=== PATIENT | male | born 1940 | race Caucasian/White ===

== ENCOUNTER 2018-01-10 19:16 | Inpatient (IN) | payer MEDICARE ==
[~2018-01-10] VITALS: Ht 177.8 cm; Wt 75.0 kg
[2018-01-10 19:28] VITALS: BP 167/77; PULSE 90; RESP 18; TEMP 98.1; O2SAT 87
[2018-01-10 19:34] VITALS: BP 167/77; PULSE 89; RESP 18; O2SAT 100
[2018-01-10] MEDS ORDERED: DILTIAZEM INJ 125 MG in SODIUM CHLORIDE 0.9% INJ 100 ML IV PRN (19:45)
[2018-01-10] MEDS ORDERED: SODIUM CHLORIDE 0.9% FLUSH 10 ML FLUSH IVF PRN (19:45)
[2018-01-10] MEDS ORDERED: DILTIAZEM HCL 25 MG/5 ML VIAL IV PUSH ONE (19:45)
[2018-01-10 19:46] VITALS: O2SAT 99
--- NOTE | 2018-01-10 19:50 | PD ---
HPI Chief Complaint: Dizziness Time Seen by Provider: 19:38 Travel History International Travel<30 days: No Contact w/Intl Traveler<30days: No Traveled to known affect area: No History of Present Illness HPI The patient 77 years old and arrives with dizziness and lightheadedness. The symptoms started today. He has had no similar symptoms ever before. He reports a history of vertigo months ago however denies any change in his baseline health status lately. He has no chest pain or shortness of breath. Dizziness comes and goes lasting a few minutes at a time. No loss of consciousness. PFSH Past Medical History Cardiovascular Problems: Yes (HTN) Social History Tobacco Use: No Allergies-Medications (Allergen,Severity, Reaction): Coded Allergies: No Known Allergies (Unverified , 01/10/18) Review of Systems Except as stated in HPI: all other systems reviewed are Neg General / Constitutional: No: Fever Physical Exam Narrative GENERAL: 77-year-old male pleasant well-nourished well-developed Vital Signs Date Time Temp Pulse Resp B/P (MAP) Pulse Ox O2 Delivery O2 Flow Rate FiO2 01/10/18 19:34 85 18 98 Nasal Cannula 2.00 01/10/18 19:28 98.1 90 18 167/77 (107) 87 SKIN: Warm and dry. HEAD: Atraumatic. Normocephalic. EYES: Pupils equal and round. No scleral icterus. No injection or drainage. ENT: No nasal bleeding or discharge. Mucous membranes pink and moist. NECK: Trachea midline. No JVD. CARDIOVASCULAR: Irregular heart rate. Rhythm occasionally jumps to 170. In between runs of tachycardia the heart rate remains at 80s. RESPIRATORY: No accessory muscle use. Clear to auscultation. Breath sounds equal bilaterally. GASTROINTESTINAL: Abdomen soft, non-tender, nondistended. Hepatic and splenic margins not palpable. MUSCULOSKELETAL: Extremities without clubbing, cyanosis, or edema. No obvious deformities. NEUROLOGICAL: Awake and alert. No obvious cranial nerve deficits. Motor grossly within normal limits. Five out of 5 muscle strength in the arms and legs. Normal speech. PSYCHIATRIC: Appropriate mood and affect; insight and judgment normal. Data Data Last Documented VS Vital Signs Date Time Temp Pulse Resp B/P (MAP) Pulse Ox O2 Delivery O2 Flow Rate FiO2 01/10/18 20:52 70 18 135/79 (97) 100 01/10/18 19:46 Nasal Cannula 2.00 01/10/18 19:28 98.1 Orders Orders Electrocardiogram (01/10/18 19:38) Basic Metabolic Panel (Bmp) (01/10/18 19:38) Ckmb (Isoenzyme) Profile (01/10/18 19:38) Complete Blood Count With Diff (01/10/18 19:38) Magnesium (Mg) (01/10/18 19:38) Prothrombin Time / Inr (Pt) (01/10/18 19:38) Act Partial Throm Time (Ptt) (01/10/18 19:38) Troponin I (01/10/18 19:38) Chest, Single Ap (01/10/18 19:38) Ecg Monitoring (01/10/18:38) Iv Access Insert/Monitor (01/10/18 19:38) Oximetry (01/10/18 19:38) Oxygen Administration (01/10/18:38) Sodium Chloride 0.9% Flush (Ns Flush) (01/10/18 19:45) Diltiazem Inj (Cardizem Inj) (01/10/18 19:45) Diltiazem Inj (Cardizem Inj) (01/10/18 19:45) Diltiazem Inj (Cardizem Inj) (01/10/18 20:00) Potassium Chloride (Kcl) (01/10/18 21:00) Admit Order (Ed Use Only) (01/10/18 ) Property Disposal Officer / Telemetry LAILA.Q8H (01/10/18 21:58) Vital Signs (Adult) Q4H (01/10/18 21:58) Diet Heart Healthy (01/11/18 Breakfast) Activity Bed Rest (01/10/18 21:58) Labs Laboratory Tests Test 01/10/18 19:50 White Blood Count 6.3 TH/MM3 Red Blood Count 4.64 MIL/MM3 Hemoglobin 14.2 GM/DL Hematocrit 40.2 % Mean Corpuscular Volume 86.5 FL Mean Corpuscular Hemoglobin 30.5 PG Mean Corpuscular Hemoglobin Concent 35.3 % Red Cell Distribution Width 13.4 % Platelet Count 180 TH/MM3 Mean Platelet Volume 7.8 FL Neutrophils (%) (Auto) 68.1 % Lymphocytes (%) (Auto) 21.6 % Monocytes (%) (Auto) 8.4 % Eosinophils (%) (Auto) 1.2 % Basophils (%) (Auto) 0.7 % Neutrophils # (Auto) 4.3 TH/MM3 Lymphocytes # (Auto) 1.4 TH/MM3 Monocytes # (Auto) 0.5 TH/MM3 Eosinophils # (Auto) 0.1 TH/MM3 Basophils # (Auto) 0.0 TH/MM3 CBC Comment DIFF FINAL Differential Comment Prothrombin Time 10.6 SEC Prothromb Time International Ratio 1.0 RATIO Activated Partial Thromboplast Time 24.0 SEC Blood Urea Nitrogen 14 MG/DL Creatinine 1.05 MG/DL Random Glucose 122 MG/DL Calcium Level 9.4 MG/DL Magnesium Level 2.2 MG/DL Sodium Level 139 MEQ/L Potassium Level 3.2 MEQ/L Chloride Level 104 MEQ/L Carbon Dioxide Level 25.3 MEQ/L Anion Gap 10 MEQ/L Estimat Glomerular Filtration Rate 68 ML/MIN Total Creatine Kinase 77 U/L Troponin I LESS THAN 0.02 NG/ML MDM Medical Decision Making Medical Screen Exam Complete: Yes Emergency Medical Condition: Yes Medical Record Reviewed: Yes Differential Diagnosis NSTEMI, unstable angina, coronary vasospasm, PE, PTX, aortic dissection, pericarditis, myocarditis, endocarditis, PNA, esophageal disease, aneurysm, musculoskeletal etiologies, anxiety, cocaine/sympathomimetic abuse Narrative Course CBC & BMP Diagram 01/10/18 19:50 Calcium Level 9.4, Magnesium Level 2.2 Troponins less than 0.02 2 EKGs were performed, the second was obtained about 2 minutes after the first The first reveals a sinus rhythm with a rate of 95 normal axis intervals The second EKG reveals ventricular rate of 172 and his atrial fibrillation Last Impressions Chest X-Ray 01/10/181937 Signed Impressions: Service Date/Time: December 19:45 - CONCLUSION: No acute cardiopulmonary disease demonstrated. Grover Isabel MD The patient received diltiazem twice. The patient was then placed on a diltiazem drip. Patient will be admitted for A. fib with RVR with dizziness secondary to hypoperfusion. D/w Dr Camargo for [facility] Critical Care Narrative Aggregate critical care time was 35 minutes. Time to perform other separately billable procedures was not included in the critical care time. My time did not include minutes spent treating any other patients simultaneously or on activities that did not directly contribute to the patient's treatment. The services I provided to this patient were to treat and/or prevent clinically significant deterioration that could result in: Cardiopulmonary arrest, hemorrhagic shock I provided critical care services requiring my management, as noted below: Chart data review, documentation time, medication orders and management, vital sign assessments/reviewing monitor data, ordering and reviewing lab tests, ordering and interpreting/reviewing x-rays and diagnostic studies, care of the patient and discussion of the patient with the admitting physicians. Diagnosis Primary Impression: Atrial fibrillation with RVR Additional Impressions: Hypokalemia Dizziness Admitting Information Admitting Physician Requests: Norman Adams MD Jan 10, 2018 19:50
--- NOTE | 2018-01-10 19:59 | RADRPT ---
EXAM DATE/TIME: 01/10/2018 19:45 [place] COMPARISON: No previous studies available for comparison. INDICATIONS : Short of breath MEDICAL HISTORY : None. SURGICAL HISTORY : None. ENCOUNTER: Initial ACUITY: 1 day PAIN SCORE: 0/10 LOCATION: chest FINDINGS: A single view of the chest demonstrates the lungs to be symmetrically aerated without evidence of mas s, infiltrate or effusion. The cardiomediastinal contours are unremarkable. Osseous structures are intact. CONCLUSION: No acute cardiopulmonary disease demonstrated. Grover Isabel MD on January 10, 2018 at 19:56 Board Certified Radiologist. This report was verified electronically.
[2018-01-10] MEDS ORDERED: DILTIAZEM HCL 50 MG/10 ML VIAL IV PUSH ONE (20:00)
[2018-01-10 20:11] LABS: AUTOMATED NEUTROPHIL # 4.3 TH/MM3 (1.8-7.7); BASOPHIL % 0.7 % (0.0-2.0); EOSINOPHIL # 0.1 TH/MM3 (0-0.4); EOSINOPHIL % 1.2 % (0.0-4.0); HEMATOCRIT 40.2 % (39.0-51.0); HEMOGLOBIN 14.2 GM/DL (13.0-17.0); LYMPH % 21.6 % (9.0-44.0); LYMPHOCYTE # 1.4 TH/MM3 (1.0-4.8); MEAN CELL VOLUME 86.5 FL (80.0-100.0); MEAN CORPUSCULAR HEMOGLOBIN 30.5 PG (27.0-34.0); MEAN CORPUSCULAR HGB CONC 35.3 % (32.0-36.0); MEAN PLATELET VOLUME 7.8 FL (7.0-11.0); MONO % 8.4 % (0.0-8.0); MONOCYTE # 0.5 TH/MM3 (0-0.9); NEUT % 68.1 % (16.0-70.0); PLATELET COUNT 180 TH/MM3 (150-450); RED BLOOD COUNT 4.64 MIL/MM3 (4.50-5.90); RED CELL DISTRIBUTION WIDTH 13.4 % (11.6-17.2); WHITE BLOOD COUNT 6.3 TH/MM3 (4.0-11.0)
[2018-01-10 20:13] LABS: PROTHROMBIN TIME - PATIENT 10.6 SEC (9.8-11.6)
[2018-01-10 20:33] LABS: BICARBONATE 25.3 MEQ/L (21.0-32.0); BLOOD UREA NITROGEN 14 MG/DL (7-18); CALCIUM 9.4 MG/DL (8.5-10.1); CHLORIDE 104 MEQ/L (98-107); CREATININE 1.05 MG/DL (0.60-1.30); GLOMERULAR FILTRATION RATE 68 ML/MIN (>89); GLUCOSE,RANDOM 122 MG/DL (74-106); MAGNESIUM 2.2 MG/DL (1.5-2.5); SODIUM (NA) 139 MEQ/L (136-145)
[2018-01-10 20:37] LABS: TROPONIN I LESS THAN 0.02 NG/ML (0.02-0.05)
[2018-01-10 20:52] VITALS: BP 135/79; PULSE 70; RESP 18; O2SAT 100
[2018-01-10] MEDS ORDERED: POTASSIUM CHLORIDE 20 MEQ CONTROLLED RELEASE TAB PO ONE (21:00)
[2018-01-10] MEDS ORDERED: ENOXAPARIN SODIUM 40 MG/0.4 ML SYRINGE SQ SCH (22:45)
[2018-01-10] MEDS ORDERED: SODIUM CHLORIDE 0.9% FLUSH 10 ML FLUSH IV FLUSH PRN (22:45)
[2018-01-10] MEDS ORDERED: ONDANSETRON HCL 4 MG/2 ML VIAL IVP PRN (22:45)
[2018-01-10] MEDS ORDERED: NALOXONE HCL 0.4 MG/ML AMP IV PUSH PRN (22:45)
[2018-01-11] VITALS (14 sets, daily range): BP systolic 125–163; BP diastolic 71–87; PULSE 32–68; RESP 13–18; TEMP 97.7–97.8; O2SAT 100
[2018-01-11] MEDS ORDERED: POTASSIUM CHLORIDE 20 MEQ CONTROLLED RELEASE TAB PO ONE (01:15)
--- NOTE | 2018-01-11 01:27 | HHI.HP ---
[facility] Unknown Admission Diagnosis AFib RVR; HypoK; Dizziness Diagnoses: Travel History International Travel<30 Days: No Contact w/Intl Traveler <30 Da: No Traveled to Known Affected Are: No History of Present Illness 77-year-old male with a past medical history significant for hypertension and an unspecified tachycardia presents to the emergency department for the evaluation of multiple "fainting spells." The patient reports that the first one occurred while he was walking down [address] and the second one occurred while he was driving. He states that he became lightheaded but denies loss of consciousness. The patient denies any chest pain or palpitations. He denies shortness of breath. No nausea/vomiting. No fever/chills. 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 He is an extremely poor historian and does not remember the medications that he takes. Patient denies any previous history of irregular heartbeat or atrial fibrillation. Review of Systems Except as stated in HPI: all other systems reviewed are Neg Past Family Social History Past Medical History History of tachycardia Hypertension Past Surgical History Right hip Hernia repair Reported Medications Patient does not know Allergies: Coded Allergies: No Known Allergies (Unverified , 01/10/18) Family History Negative for CAD/DM Social History Remote history of smoking. Occasional alcohol. Denies illicit drugs. Physical Exam Vital Signs Vital Signs Date Time Temp Pulse Resp B/P (MAP) Pulse Ox O2 Delivery O2 Flow Rate FiO2 01/10/18 20:52 70 18 135/79 (97) 100 01/10/18 20:25 74 137/84 01/10/18 19:46 98 Nasal Cannula 2.00 01/10/18 19:46 99 Nasal Cannula 2.00 01/10/18 19:34 85 18 98 Nasal Cannula 2.00 01/10/18 19:34 89 18 167/77 (107) 100 01/10/18 19:28 98.1 90 18 167/77 (107) 87 Physical Exam GENERAL: male lying in bed SKIN: No rashes, ecchymoses or lesions. Cool and dry. HEAD: Atraumatic. Normocephalic. No temporal or scalp tenderness. EYES: Pupils equal round and reactive. Extraocular motions intact. No scleral icterus. No injection or drainage. ENT: Nose without bleeding, purulent drainage or septal hematoma. Throat without erythema, tonsillar hypertrophy or exudate. Uvula midline. Airway patent. NECK: Trachea midline. No JVD or lymphadenopathy. Supple, nontender, no meningeal signs. CARDIOVASCULAR: Regular rate and rhythm without murmurs, gallops, or rubs. RESPIRATORY: Clear to auscultation. Breath sounds equal bilaterally. No wheezes , rales, or rhonchi. GASTROINTESTINAL: Abdomen soft, non-tender, nondistended. No hepato-splenomegaly , or palpable masses. No guarding. MUSCULOSKELETAL: Extremities without clubbing, cyanosis, or edema. No joint tenderness, effusion, or edema noted. No calf tenderness. NEUROLOGICAL: Awake and alert. Cranial nerves II through XII intact. Motor and sensory grossly within normal limits. Normal speech. Laboratory Laboratory Tests Test 01/10/18 19:50 White Blood Count 6.3 Red Blood Count 4.64 Hemoglobin 14.2 Hematocrit 40.2 Mean Corpuscular Volume 86.5 Mean Corpuscular Hemoglobin 30.5 Mean Corpuscular Hemoglobin Concent 35.3 Red Cell Distribution Width 13.4 Platelet Count 180 Mean Platelet Volume 7.8 Neutrophils (%) (Auto) 68.1 Lymphocytes (%) (Auto) 21.6 Monocytes (%) (Auto) 8.4 Eosinophils (%) (Auto) 1.2 Basophils (%) (Auto) 0.7 Neutrophils # (Auto) 4.3 Lymphocytes # (Auto) 1.4 Monocytes # (Auto) 0.5 Eosinophils # (Auto) 0.1 Basophils # (Auto) 0.0 CBC Comment DIFF FINAL Differential Comment Prothrombin Time 10.6 Prothromb Time International Ratio 1.0 Activated Partial Thromboplast Time 24.0 Blood Urea Nitrogen 14 Creatinine 1.05 Random Glucose 122 Calcium Level 9.4 Magnesium Level 2.2 Sodium Level 139 Potassium Level 3.2 Chloride Level 104 Carbon Dioxide Level 25.3 Anion Gap 10 Estimat Glomerular Filtration Rate 68 Total Creatine Kinase 77 Troponin I LESS THAN 0.02 Result Diagram: 01/10/18 1950 01/10/181949 Caprini VTE Risk Assessment Caprini VTE Risk Assessment: Mod/High Risk (score >= 2) Caprini Risk Assessment Model Point Value = 1 Point Value = 2 Point Value = 3 Point Value = 5 Age 41-60 Minor surgery BMI > 25 kg/m2 Swollen legs Varicose veins or History of unexplained or recurrent spontaneous Oral contraceptives or hormone replacement Sepsis (< 1 month) Serious lung disease, including pneumonia (< 1 month) Abnormal pulmonary function Acute myocardial infarction Congestive heart failure (< 1 month) History of inflammatory bowel disease Medical patient at bed rest Age 61-74 Arthroscopic surgery Major open surgery (> 45 min) Laparoscopic surgery (> 45 min) Malignancy Confined to bed (> 72 hours) Immobilizing plaster cast Central venous access Age >= 75 History of VTE Family history of VTE Factor V Leiden Prothrombin [id number] Lupus anticoagulant Anticardiolipin antibodies Elevated serum homocysteine Heparin-induced thrombocytopenia Other congenital or acquired thrombophilia Stroke (< 1 month) Elective arthroplasty Hip, pelvis, or leg fracture Acute spinal cord injury (< 1 month) Prophylaxis Regimen Total Risk Factor Score Risk Level Prophylaxis Regimen 0-1 Low Early ambulation 2 Moderate Order ONE of the following: *Sequential Compression Device (SCD) *Heparin 5000 units SQ BID 3-4 Higher Order ONE of the following medications: *Heparin 5000 units SQ TID *Enoxaparin/Lovenox 40 mg SQ daily (WT < 150 kg, CrCl > 30 mL/min) *Enoxaparin/Lovenox 30 mg SQ daily (WT < 150 kg, CrCl > 10-29 mL/min) *Enoxaparin/Lovenox 30 mg SQ BID (WT < 150 kg, CrCl > 30 mL/min) AND/OR *Sequential Compression Device (SCD) 5 or more Highest Order ONE of the following medications: *Heparin 5000 units SQ TID (Preferred with Epidurals) *Enoxaparin/Lovenox 40 mg SQ daily (WT < 150 kg, CrCl > 30 mL/min) *Enoxaparin/Lovenox 30 mg SQ daily (WT < 150 kg, CrCl > 10-29 mL/min) *Enoxaparin/Lovenox 30 mg SQ BID (WT < 150 kg, CrCl > 30 mL/min) AND *Sequential Compression Device (SCD) Assessment and Plan Assessment and Plan Assessment/plan: 1. Atrial fibrillation with rapid ventricular response Patient without history of A. fib, not on anticoagulation EKG significant for A. 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 he is on a medication that ends in -lol, can not remember the name 2. Hypokalemia Status post by mouth repletion Follow-up BMP in the a.m. 3. Hypertension Patient does not number his home medications Blood pressure currently controlled Monitor Patient will contact his who may know his home medication list FEN Heart healthy diet Electrolytes: As above [facility] Physician Certification 2 Midnight Certification Type: Admission for Inpatient Services Order for Inpatient Services The services are ordered in accordance with Medicare regulations or non- Medicare payer requirements, as applicable. In the case of services not specified as inpatient-only, they are appropriately provided as inpatient services in accordance with the 2-midnight benchmark. Estimated LOS (days): 2 2 days is the estimated time the patient will need to remain in the hospital, assuming treatment plan goals are met and no additional complications. Post-Hospital Plan: Not yet determined Emmy Camargo MD Jan 11, 2018 01:27
[2018-01-11 08:48] LABS: AUTOMATED NEUTROPHIL # 2.6 TH/MM3 (1.8-7.7); BASOPHIL % 0.7 % (0.0-2.0); EOSINOPHIL # 0.1 TH/MM3 (0-0.4); EOSINOPHIL % 1.7 % (0.0-4.0); HEMATOCRIT 39.1 % (39.0-51.0); HEMOGLOBIN 13.9 GM/DL (13.0-17.0); LYMPH % 28.5 % (9.0-44.0); LYMPHOCYTE # 1.3 TH/MM3 (1.0-4.8); MEAN CELL VOLUME 86.1 FL (80.0-100.0); MEAN CORPUSCULAR HEMOGLOBIN 30.6 PG (27.0-34.0); MEAN CORPUSCULAR HGB CONC 35.6 % (32.0-36.0); MONO % 11.1 % (0.0-8.0); MONOCYTE # 0.5 TH/MM3 (0-0.9); PLATELET COUNT 168 TH/MM3 (150-450); RED BLOOD COUNT 4.54 MIL/MM3 (4.50-5.90); RED CELL DISTRIBUTION WIDTH 13.5 % (11.6-17.2); WHITE BLOOD COUNT 4.4 TH/MM3 (4.0-11.0)
[2018-01-11] MEDS ORDERED: SODIUM CHLORIDE 0.9% FLUSH 10 ML FLUSH IV FLUSH SCH (09:00)
[2018-01-11 09:04] LABS: BICARBONATE 25.6 MEQ/L (21.0-32.0); CREATININE 0.82 MG/DL (0.60-1.30)
[2018-01-11] MEDS ORDERED: cloNIDine HCL 0.2 MG TAB PO PRN (10:00)
--- NOTE | 2018-01-11 10:09 | HHI.PR ---
Subjective Remarks This is a pleasant 77 y/o Male with Hypertension, Atrial Fibrillation who came to ER with Syncopal episodes, He states that he became lightheaded but denies loss of consciousness. The patient denies any chest pain or palpitations. He denies shortness of breath. No nausea/vomiting. No fever/chills. Patient denies any previous history of irregular heartbeat or atrial fibrillation. 01/11: Admitted today and awaiting for recruitment specialist consult, added laboratory. No nausea, vomit or diarrhea. Objective Vital Signs Date Time Temp Pulse Resp B/P (MAP) Pulse Ox O2 Delivery O2 Flow Rate FiO2 01/11/18 08:00 60 01/11/18 08:00 97.8 61 17 163/87 (112) 100 01/11/18 06:08 50 18 131/71 (91) 100 Room Air 01/11/18 04:34 48 137/78 01/11/18 04:28 60 146/78 (100) 01/11/18 02:02 48 18 136/77 (96) 100 01/11/18 01:47 50 139/82 (101) 01/11/18 01:34 52 134/75 (94) 01/11/18 01:17 52 137/73 (94) 01/11/18 01:02 52 136/74 (94) 01/11/18 00:47 52 143/81 (101) 01/11/18 00:17 54 145/76 (99) 01/11/18 00:02 64 160/84 (109) 01/11/18 00:00 58 143/68 01/10/18 20:52 70 18 135/79 (97) 100 01/10/18 20:25 74 137/84 01/10/18 19:46 98 Nasal Cannula 2.00 01/10/18 19:46 99 Nasal Cannula 2.00 01/10/18 19:34 85 18 98 Nasal Cannula 2.00 01/10/18 19:34 89 18 167/77 (107) 100 01/10/18 19:28 98.1 90 18 167/77 (107) 87 I/O 01/10/18 01/10/18 01/10/18 01/11/18 01/11/18 01/11/18 07:00 15:00 23:00 07:00 15:00 23:00 Output Total 250 ml Balance -250 ml Output Urine Total 250 ml Result Diagram: 01/11/18 0735 01/11/18 0755 Imaging Last Impressions Chest X-Ray 01/10/18 1938 Signed Impressions: Service Date/Time: December 19:45 - CONCLUSION: No acute cardiopulmonary disease demonstrated. Grover Isabel MD Procedures None Other Results Laboratory Tests Test 01/10/18 19:50 01/11/18 07:35 01/11/18 07:55 Prothrombin Time 10.6 SEC Prothromb Time International Ratio 1.0 RATIO Activated Partial Thromboplast Time 24.0 SEC Blood Urea Nitrogen 14 MG/DL 13 MG/DL Creatinine 1.05 MG/DL 0.82 MG/DL Random Glucose 122 MG/DL 89 MG/DL Calcium Level 9.4 MG/DL 9.0 MG/DL Magnesium Level 2.2 MG/DL Sodium Level 139 MEQ/L 142 MEQ/L Potassium Level 3.2 MEQ/L 3.5 MEQ/L Chloride Level 104 MEQ/L 108 MEQ/L Carbon Dioxide Level 25.3 MEQ/L 25.6 MEQ/L Total Creatine Kinase 77 U/L Troponin I LESS THAN 0.02 NG/ML White Blood Count 4.4 TH/MM3 Red Blood Count 4.54 MIL/MM3 Hemoglobin 13.9 GM/DL Hematocrit 39.1 % Mean Corpuscular Volume 86.1 FL Mean Corpuscular Hemoglobin 30.6 PG Mean Corpuscular Hemoglobin Concent 35.6 % Red Cell Distribution Width 13.5 % Platelet Count 168 TH/MM3 Mean Platelet Volume 8.0 FL Neutrophils (%) (Auto) 58.0 % Lymphocytes (%) (Auto) 28.5 % Monocytes (%) (Auto) 11.1 % Eosinophils (%) (Auto) 1.7 % Basophils (%) (Auto) 0.7 % Neutrophils # (Auto) 2.6 TH/MM3 Lymphocytes # (Auto) 1.3 TH/MM3 Monocytes # (Auto) 0.5 TH/MM3 Eosinophils # (Auto) 0.1 TH/MM3 Basophils # (Auto) 0.0 TH/MM3 CBC Comment DIFF FINAL Differential Comment Anion Gap 8 MEQ/L Estimat Glomerular Filtration Rate 91 ML/MIN Objective Remarks GENERAL: male lying in bed SKIN: No rashes, ecchymoses or lesions. Cool and dry. HEAD: Atraumatic. Normocephalic. No temporal or scalp tenderness. EYES: Pupils equal round and reactive. Extraocular motions intact. No scleral icterus. No injection or drainage. ENT: Nose without bleeding, purulent drainage or septal hematoma. Throat without erythema, tonsillar hypertrophy or exudate. Uvula midline. Airway patent. NECK: Trachea midline. No JVD or lymphadenopathy. Supple, nontender, no meningeal signs. CARDIOVASCULAR: Regular rate and rhythm without murmurs, gallops, or rubs. RESPIRATORY: Clear to auscultation. Breath sounds equal bilaterally. No wheezes , rales, or rhonchi. GASTROINTESTINAL: Abdomen soft, non-tender, nondistended. No hepato-splenomegaly , or palpable masses. No guarding. MUSCULOSKELETAL: Extremities without clubbing, cyanosis, or edema. No joint tenderness, effusion, or edema noted. No calf tenderness. NEUROLOGICAL: Awake and alert. Cranial nerves II through XII intact. Motor and sensory grossly within normal limits. Normal speech. Medications and IVs Current Medications Medications (Trade) Dose Ordered Sig/Demetrio Route Start Time Stop Time Status Last Admin Diltiazem HCl 125 mg/Sodium Chloride 125 ml @ 5 mls/hr TITRATE PRN IV 01/10/18 19:45 01/10/18 20:25 (NS Flush) 2 ml UNSCH PRN IV FLUSH 01/10/18 22:45 (NS Flush) 2 ml BID IV FLUSH 01/11/18 09:00 01/11/18 08:16 (Zofran Inj) 4 mg Q6H PRN IVP 01/10/18 22:45 (Lovenox Inj) 40 mg Q24H SQ 01/10/18 22:45 01/10/18 23:44 (Narcan Inj) 0.4 mg UNSCH PRN IV PUSH 01/10/18 22:45 (Catapres) 0.2 mg Q6H PRN PO 01/11/18 10:00 UNV A/P Assessment and Plan 1. Atrial fibrillation with rapid ventricular response Patient without history of A. fib, not on anticoagulation EKG significant for A. 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 Presyncope asked for Echocardiogram, added laboratory and following recommendations, Orthostatic Vital signs. 2. Hypokalemia continue replacement today 3.5 giving 40 meq of Potassium chloride. 3. Hypertension Patient does not number his home medications Blood pressure currently controlled Monitor Patient will contact his who may know his home medication list FEN Heart healthy diet Electrolytes: As above Lovenox Discharge Planning Once cleared by recruitment specialist. Jamarcus Lopez MD Jan 11, 2018 10:09
--- NOTE | 2018-01-11 10:10 | PD.CONS ---
HPI Service cardiology Consult Requested By Reason for Consult afib RVR, near syncope Primary Care Physician Unknown History of Present Illness This is a 77 yo WM with HTN, vertigo and palpitations who is followed by a company laborer in [place] who presents after several episodes of near syncope yesterday. He is visiting from [place] for Bike week and began to feel lightheaded while walking downtown, after resting symptom improved; he then began to feel faint later in the day while driving and came to ED for evaluation. He is unsure of daily medications; has left them back in his hotel room, but think his company laborer has prescribed his sotalol for intermittent palpitations. He denies having a history of CAD, no prior cardiac catheterizations or interventions and is in otherwise good health. Upon evaluation in ED he was tachycardic with HR 170 and in afib; Cardizem gtt started which has converted him to NSR and HR of 60bpm. troponin normal. He denies chest pain or history of afib. He plans to drive home tomorrow and follow up with cardio next week. Review of Systems Consitutional: DENIES: Fatigue, Fever, Chills, Weight gain, Weight loss Respiratory: DENIES: Cough, Snoring, Shortness of breath, Wheezing, Sputum production Cardiovascular: DENIES: Chest pain, Palpitations Gastrointestinal: DENIES: Nausea, Vomiting, Change in bowel habits, Reflux, Bloody stools, Melena Past Family Social History Allergies: Coded Allergies: No Known Allergies (Unverified , 01/10/18) Past Medical History History of tachycardia Hypertension Past Surgical History Right hip Hernia repair Active Ordered Medications Current Medications Medications (Trade) Dose Ordered Sig/Demetrio Route Start Time Stop Time Status Last Admin Diltiazem HCl 125 mg/Sodium Chloride 125 ml @ 5 mls/hr TITRATE PRN IV 01/10/18 19:45 01/10/18 20:25 (NS Flush) 2 ml UNSCH PRN IV FLUSH 01/10/18 22:45 (NS Flush) 2 ml BID IV FLUSH 01/11/18 09:00 01/11/18 08:16 (Zofran Inj) 4 mg Q6H PRN IVP 01/10/18 22:45 (Lovenox Inj) 40 mg Q24H SQ 01/10/18 22:45 01/10/18 23:44 (Narcan Inj) 0.4 mg UNSCH PRN IV PUSH 01/10/18 22:45 Family History Negative for CAD/DM Social History Remote history of smoking. Occasional alcohol. Denies illicit drugs. Physical Exam Vital Signs Vital Signs Date Time Temp Pulse Resp B/P (MAP) Pulse Ox O2 Delivery O2 Flow Rate FiO2 01/11/18 08:00 60 01/11/18 08:00 97.8 61 17 163/87 (112) 100 01/11/18 06:08 50 18 131/71 (91) 100 Room Air 01/11/18 04:34 48 137/78 01/11/18 04:28 60 146/78 (100) 01/11/18 02:02 48 18 136/77 (96) 100 01/11/18 01:47 50 139/82 (101) 01/11/18 01:34 52 134/75 (94) 01/11/18 01:17 52 137/73 (94) 01/11/18 01:02 52 136/74 (94) 01/11/18 00:47 52 143/81 (101) 01/11/18 00:17 54 145/76 (99) 01/11/18 00:02 64 160/84 (109) 01/11/18 00:00 58 143/68 01/10/18 20:52 70 18 135/79 (97) 100 01/10/18 20:25 74 137/84 01/10/18 19:46 98 Nasal Cannula 2.00 01/10/18 19:46 99 Nasal Cannula 2.00 01/10/18 19:34 85 18 98 Nasal Cannula 2.00 01/10/18 19:34 89 18 167/77 (107) 100 01/10/18 19:28 98.1 90 18 167/77 (107) 87 Physical Exam GENERAL: SKIN: Warm and dry. HEAD: Atraumatic. Normocephalic. EYES: Pupils equal and round. No scleral icterus. ENT: No nasal bleeding or discharge. NECK: Trachea midline. No JVD. CARDIOVASCULAR: Regular rate and rhythm. no murmurs RESPIRATORY: No accessory muscle use. Clear to auscultation. Breath sounds equal bilaterally. GASTROINTESTINAL: Abdomen soft, non-tender, nondistended. MUSCULOSKELETAL: Extremities without clubbing, cyanosis, or edema. No obvious deformities. NEUROLOGICAL: Awake and alert. No obvious cranial nerve deficits. Normal speech. PSYCHIATRIC: Appropriate mood and affect; insight and judgment normal. Laboratory Laboratory Tests Test 01/10/18 19:50 01/11/18 07:35 01/11/18 07:55 White Blood Count 6.3 4.4 Red Blood Count 4.64 4.54 Hemoglobin 14.2 13.9 Hematocrit 40.2 39.1 Mean Corpuscular Volume 86.5 86.1 Mean Corpuscular Hemoglobin 30.5 30.6 Mean Corpuscular Hemoglobin Concent 35.3 35.6 Red Cell Distribution Width 13.4 13.5 Platelet Count 180 168 Mean Platelet Volume 7.8 8.0 Neutrophils (%) (Auto) 68.1 58.0 Lymphocytes (%) (Auto) 21.6 28.5 Monocytes (%) (Auto) 8.4 11.1 Eosinophils (%) (Auto) 1.2 1.7 Basophils (%) (Auto) 0.7 0.7 Neutrophils # (Auto) 4.3 2.6 Lymphocytes # (Auto) 1.4 1.3 Monocytes # (Auto) 0.5 0.5 Eosinophils # (Auto) 0.1 0.1 Basophils # (Auto) 0.0 0.0 CBC Comment DIFF FINAL DIFF FINAL Differential Comment Prothrombin Time 10.6 Prothromb Time International Ratio 1.0 Activated Partial Thromboplast Time 24.0 Blood Urea Nitrogen 14 13 Creatinine 1.05 0.82 Random Glucose 122 89 Calcium Level 9.4 9.0 Magnesium Level 2.2 Sodium Level 139 142 Potassium Level 3.2 3.5 Chloride Level 104 108 Carbon Dioxide Level 25.3 25.6 Anion Gap 10 8 Estimat Glomerular Filtration Rate 68 91 Total Creatine Kinase 77 Troponin I LESS THAN 0.02 Result Diagram: 01/11/18 0735 01/11/18 0755 Imaging Last 24 hours Impressions Chest X-Ray 01/10/18 1938 Signed Impressions: Service Date/Time: December 19:45 - CONCLUSION: No acute cardiopulmonary disease demonstrated. Grover Isabel MD Assessment and Plan Problem List: (1) Atrial fibrillation with RVR ICD Codes: I48.91 - Unspecified atrial fibrillation Status: Acute (2) Dizziness ICD Codes: R42 - Dizziness and giddiness Status: Acute (3) Hypokalemia ICD Codes: E87.6 - Hypokalemia Status: Acute Assessment and Plan 77 yo WM with HTN, vertigo and palpitations who is followed by a company laborer in [place] who presents after several episodes of near syncope yesterday. He is visiting from [place] for Bike week and began to feel lightheaded while walking downtown, after resting symptom improved; he then began to feel faint later in the day while driving and came to ED for evaluation. He is unsure of daily medications; has left them back in his hotel room, but think his company laborer has prescribed his sotalol for intermittent palpitations. He denies having a history of CAD, no prior cardiac catheterizations or interventions and is in otherwise good health afib RVR- now in NSR with rate control; off cardizem gtt and feeling well. CHADS-VASC= 3 (age + HTN), consider anticoagulation; to discuss with his company laborer at home. resume home medications ok for discharge HTN- improving hypokalemia- nomalized after K+ po single dose Ameena Chacon Jan 11, 2018 10:10
[2018-01-11] MEDS: POTASSIUM CHLORIDE 20 MEQ CONTROLLED RELEASE TAB PO ONE ×3 (10:55→11:00)
[2018-01-11] MEDS ORDERED: vitamin D2 PO (11:33)
[2018-01-11] MEDS ORDERED: CALC1TAB34 PO (11:55)
[2018-01-11] MEDS ORDERED: FOSA70TA PO (11:55)
[2018-01-11] MEDS ORDERED: ASPI81TA22 PO (11:55)
[2018-01-11] MEDS ORDERED: BETA80TA PO (11:55)
[2018-01-11] MEDS ORDERED: AMLO10 PO (11:55)
[2018-01-11] MEDS ORDERED: TAMS5CAP PO (11:55)
[2018-01-11] MEDS ORDERED: PROS5TAB PO (11:55)
[2018-01-11 12:04] LABS: CHOLESTEROL 166 MG/DL (120-200)
[2018-01-11 12:29] LABS: CHOLESTEROL/ HDL RATIO 2.45 RATIO; FREE T4 1.05 NG/DL (0.76-1.46); HDL CHOLESTEROL 67.6 MG/DL (40.0-60.0); LDL CHOLESTEROL 83 MG/DL (0-99); TRIGLYCERIDES 78 MG/DL (42-150)
[2018-01-11 13:49] LABS: BILIRUBIN, URINE NEG (NEG); BLOOD, URINE NEG (NEG); GLUCOSE,URINE NEG (NEG); KETONE, URINE 10 mg/dL (NEG); MUCUS URINE FEW /lpf (OCC); NITRITE,URINE NEG (NEG); SQUAMOUS EPITHELIAL CELL URINE <1 /hpf (0-5); URINE COLOR YELLOW (YELLW/STRAW); URINE LEUKOCYTE ESTERASE NEG (NEG)
--- NOTE | 2018-01-11 14:14 | EKG ---
Date Performed: 01/10/2018 Time Performed: 19:34:50 PTAGE: 77 years EKG: ATRIAL FIBRILLATION WITH RAPID VENTRICULAR RESPONSE NONSPECIFIC ST & T-WAVE ABNORMALITY ABN ORMAL RHYTHM ECG NO PREVIOUS TRACING Cannot rule out ischemia. Clinical correlation is recommended. DOCTOR: Silviano Hirsch Interpretating Date/Time 01/11/2018 14:13:11
--- NOTE | 2018-01-11 14:19 | HHI.DS ---
Discharge Summary Admission Date Jan 10, 2018 at 22:00 Discharge Date: Jan 11, 2018 Admitting Diagnosis AFib RVR; HypoK; Dizziness (1) Hypokalemia ICD Code: E87.6 - Hypokalemia Diagnosis: Principal Status: Acute (2) Dizziness ICD Code: R42 - Dizziness and giddiness Diagnosis: Principal Status: Acute (3) Atrial fibrillation with RVR ICD Code: I48.91 - Unspecified atrial fibrillation Diagnosis: Principal Status: Acute Procedures None Brief History - From Admission 77-year-old male with a past medical history significant for hypertension and an unspecified tachycardia presents to the emergency department for the evaluation of multiple "fainting spells." The patient reports that the first one occurred while he was walking down [address] and the second one occurred while he was driving. He states that he became lightheaded but denies loss of consciousness. The patient denies any chest pain or palpitations. He denies shortness of breath. No nausea/vomiting. No fever/chills. 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 He is an extremely poor historian and does not remember the medications that he takes. Patient denies any previous history of irregular heartbeat or atrial fibrillation. CBC/BMP: 01/11/18 0735 01/11/18 0755 Significant Findings Laboratory Tests Test 01/10/18 19:50 01/11/18 07:35 01/11/18 07:55 01/11/18 10:10 Monocytes (%) (Auto) 8.4 % (0.0-8.0) 11.1 % (0.0-8.0) Activated Partial Thromboplast Time 24.0 SEC (24.3-30.1) Random Glucose 122 MG/DL (74-106) Potassium Level 3.2 MEQ/L (3.5-5.1) Estimat Glomerular Filtration Rate 68 ML/MIN (>89) Troponin I LESS THAN 0.02 NG/ML Chloride Level 108 MEQ/L (98-107) HDL Cholesterol 67.6 MG/DL (40.0-60.0) Test 01/11/18 12:30 Urine Ketones 10 mg/dL (NEG) Urine Mucus FEW /lpf (OCC) Imaging Last Impressions Chest X-Ray 01/10/181937 Signed Impressions: Service Date/Time: December 19:45 - CONCLUSION: No acute cardiopulmonary disease demonstrated. Grover Isabel MD PE at Discharge GENERAL: Well developed in no acute distress. SKIN: No rashes, ecchymoses or lesions. Cool and dry. HEAD: Atraumatic. Normocephalic. No temporal or scalp tenderness. EYES: Pupils equal round and reactive. Extraocular motions intact. No scleral icterus. No injection or drainage. ENT: Nose without bleeding, purulent drainage or septal hematoma. Throat without erythema, tonsillar hypertrophy or exudate. Uvula midline. Airway patent. NECK: Trachea midline. No JVD or lymphadenopathy. Supple, nontender, no meningeal signs. CARDIOVASCULAR: Regular rate and rhythm without murmurs, gallops, or rubs. RESPIRATORY: Clear to auscultation. Breath sounds equal bilaterally. No wheezes , rales, or rhonchi. GASTROINTESTINAL: Abdomen soft, non-tender, nondistended. No hepato-splenomegaly , or palpable masses. No guarding. MUSCULOSKELETAL: Extremities without clubbing, cyanosis, or edema. No joint tenderness, effusion, or edema noted. No calf tenderness. NEUROLOGICAL: Awake and alert. Cranial nerves II through XII intact. Motor and sensory grossly within normal limits. Normal speech. Hospital Course This is a pleasant 77 y/o Male with Hypertension, Atrial Fibrillation who came to ER with Syncopal episodes, He states that he became lightheaded but denies loss of consciousness. The patient denies any chest pain or palpitations. He denies shortness of breath. No nausea/vomiting. No fever/chills. Patient denies any previous history of irregular heartbeat or atrial fibrillation. 01/11: Admitted today and awaiting for account services specialist consult, added laboratory. No nausea, vomit or diarrhea. Assessment and Plan 1. Atrial fibrillation with rapid ventricular response EKG significant for A. fib with RVR, heart rate 172, no ST segment elevation or depression, given Cardizem drip in Emergency room continued his medicine Sotalol, Seen by account services specialist Doctor Salvatore Aguilera, now on normal sinus rhythm, asymptomatic Off Cardizem drip, feeling well, CHADS2-VASC score 2 due to age and hypertension. considered anticoagulation but was recommended to discuss this issue with his account services specialist at home. okay for discharge. 2. Presyncope asked for Echocardiogram, added laboratory and following recommendations, Orthostatic Vital signs. will need to follow with his Primary account services specialist at [place]. 3. Hypokalemia continue replacement today 3.5 giving 40 meq of Potassium chloride. Replaced. 4. Hypertension improved. FEN Heart healthy diet Electrolytes: As above Lovenox Discharge Planning Cleared for discharge by Cardiology Pt Condition on Discharge: Good Discharge Disposition: Discharge Home Discharge Time: <= 30 minutes Discharge Instructions DIET: Follow Instructions for: Heart Healthy Diet Activities you can perform: Regular-No Restrictions Jamarcus Lopez MD Jan 11, 2018 14:19
[2018-01-11 16:46] LABS: HEMOGLOBIN A1C 4.8 % (4.3-6.0)
[2018-01-11] MEDS ORDERED: SOTALOL HCL 80 MG TAB PO SCH (21:00)
[2018-01-12] MEDS ORDERED: ASPIRIN EC 81 MG TABEC PO SCH (09:00)
[2018-01-12] MEDS ORDERED: TAMSULOSIN HCL 0.4 MG CAP PO SCH (09:00)
[2018-01-12] MEDS ORDERED: FINASTERIDE 5 MG TAB PO SCH (09:00)
== END 2018-01-13 10:26 | disposition home or self-care (01) | DRG 310 ==
LOC: NEPC 19:16 → NEDA 22:00 → NEDH 01-11 07:42
PROVIDERS: ADMIT Internal Medicine; ATTEND Internal Medicine
DX: I48.91 Unspecified atrial fibrillation (principal); I10 Essential (primary) hypertension; E87.6 Hypokalemia; R55 Syncope and collapse; Z87.891 Personal history of nicotine dependence
CPT/HCPCS: 71045; 80048; 80061; 81001; 82550; 82607; 83036; 83735; 84425; 84439; 84443; 84484; 85025; 85610; 85730; 93005; 96365; 96375; J1650